=== PATIENT | female | born 1950 | race Caucasian/White ===

== ENCOUNTER 2018-10-14 19:56 | Emergency (ER) | payer MEDICARE, OTHER ==
[~2018-10-14] VITALS: Ht 167.6 cm; Wt 91.2 kg
[2018-10-14 20:04] VITALS: BP 157/76
--- NOTE | 2018-10-14 20:29 | NUR ---
PT PRESENTS TO ED WITH C/O L SKIN TEAR TO L ARM X 1 HR. BLEEDING CONTROLLED WITH GAUZE TO SITE. PT REPORTS SCRATCHING TO BUMP ON LEFT ARM AND SUDDEN ONSET OF BLEEDING. PT DENIES PAIN AT THIS TIME. PT PLACED INTO BED PENDING MD AMARO. PMH--HYPERLIPIDEMIA RX-DENIES
[2018-10-14 20:54] VITALS: BP 157/76
--- NOTE | 2018-10-14 20:54 | NUR ---
Patient discharged with v/s stable. Written and verbal after care instructions given and explained. Patient verbalized understanding. Ambulatory with steady gait. All questions addressed prior to discharge. Advised to follow up with PMD.
== END 2018-10-14 20:54 | disposition home or self-care (01) ==
LOC: MED 19:56
DX: S41.112A Laceration without foreign body of left upper arm, initial encounter (principal); Z98.890 Other specified postprocedural states; X58.XXXA Exposure to other specified factors, initial encounter; Y93.89 Activity, other specified; Y92.89 Other specified places as the place of occurrence of the external cause; Y99.8 Other external cause status
CPT/HCPCS: 12001; 99283